=== PATIENT | female | born 1960 | race Caucasian/White ===

== ENCOUNTER 2018-03-18 12:39 | Inpatient (IN) | payer OTHER ==
[~2018-03-18] VITALS: Ht 162.6 cm; Wt 45.5 kg
--- NOTE | 2018-03-18 12:53 | NUR ---
PT TAKEN TO CT.
[2018-03-18] MEDS ORDERED: ONDANSETRON HCL/PF 4 MG/2 ML VIAL ONE (12:55)
[2018-03-18] MEDS ORDERED: HYDROMORPHONE INJ 2 MG/ML DISP.SYRIN ONE (12:55)
[2018-03-18] MEDS ORDERED: LORAZEPAM INJ 2 MG/ML VIAL ONE (12:55)
[2018-03-18 12:57] LABS: BASOPHILS # (AUTO) 0.4 /CMM (0.0-0.2); BASOPHILS % (AUTO) 2.5 % (0.0-2.0); EOSINOPHILS % (AUTO) 0.8 % (0.0-6.0); HEMATOCRIT 55 % (33-45); HEMOGLOBIN 17.9 g/dL (11.5-14.8); LYMPHOCYTES # (AUTO) 3.1 /CMM (0.8-4.8); LYMPHOCYTES % (AUTO) 21.5 % (20.0-44.0); MEAN CORPUSCULAR HEMOGLOBIN 30 PG (26.0-33.0); MEAN CORPUSCULAR HGB CONC 33 g/dl (31.0-36.0); MEAN CORPUSCULAR VOLUME 94 fL (82-100); MONOCYTES # (AUTO) 0.7 /CMM (0.1-1.30); MONOCYTES % (AUTO) 4.7 % (2.0-12.0); NEUTROPHILS # (AUTO) 10.2 /CMM (1.8-8.9); NEUTROPHILS % (AUTO) 70.5 % (43.0-81.0); PLATELET COUNT (AUTO) 388 /CMM (150-450); RDW COEFFICIENT OF VARIATION 12.5 (11.5-15.0); RED BLOOD CELL COUNT(AUTO) 5.89 MIL/uL (4.0-5.2); WHITE BLOOD COUNT (AUTO) 14.5 K/uL (4.3-11.0)
[2018-03-18] MEDS ORDERED: IV NS 0.9% 250 ML IV ONE (12:58)
[2018-03-18] MEDS ORDERED: CT SWABBABLE VALVE TRANS SET 1 EA INFUS.SET MC ONE (12:58)
[2018-03-18] MEDS ORDERED: IOHEXOL-300 100 ML VIAL IV ONE (12:58)
[2018-03-18] MEDS ORDERED: HYDROMORPHONE INJ 2 MG/ML DISP.SYRIN IV ONE (13:00)
[2018-03-18] MEDS ORDERED: IV NS 0.9% 1,000 ML BAG IV ONE ×2 (13:00→14:00)
[2018-03-18] MEDS ORDERED: LORAZEPAM INJ 2 MG/ML VIAL IV ONE (13:00)
[2018-03-18] MEDS ORDERED: ONDANSETRON HCL/PF 4 MG/2 ML VIAL IVP ONE (13:00)
[2018-03-18 13:08] LABS: CALCIUM, SERUM 10.2 mg/dL (8.5-10.1); CARBON DIOXIDE 27 mmol/L (21-32); CHLORIDE 103 mmol/L (98-107); CREATININE 1.2 mg/dL (0.6-1.3); GLUCOSE 118 mg/dL (74-106); POTASSIUM 4.2 mmol/L (3.5-5.1); SODIUM SERUM 139 mmol/L (136-145); UREA NITROGEN, BLOOD 16 mg/dL (7-18)
[2018-03-18 13:12] LABS: INR 0.95 (0.85-1.15)
[2018-03-18 13:14] LABS: ALANINE AMINOTRANSFERASE 24 U/L (12-78); ALBUMIN 3.9 g/dL (3.4-5.0); ALKALINE PHOSPHATASE 120 U/L (46-116); ASPARTATE AMINOTRANSFERASE 23 U/L (15-37); BILIRUBIN,DIRECT 0.1 mg/dL (0.0-0.2); BILIRUBIN,TOTAL 0.8 mg/dL (0.2-1.0); LIPASE 236 U/L (73-393); TOTAL PROTEIN, SERUM 7.7 g/dL (6.4-8.2)
[2018-03-18 13:16] LABS: TROPONIN I < 0.017 ng/mL (0.00-0.056)
--- NOTE | 2018-03-18 13:30 | NUR ---
NGT INSERTED WITH INTERMITENT LOW SUCTION
[2018-03-18] MEDS ORDERED: METO25TA6 PO (13:42)
[2018-03-18] MEDS ORDERED: ALBU18HF2 IH (13:42)
[2018-03-18] MEDS ORDERED: ASPI-992 PO (13:42)
--- NOTE | 2018-03-18 15:46 | NUR ---
REPORT GIVEN TO ESTELA ABOUT PATIENT. PATIENT REMIANS STABLE WITH NO DISTRESS NOTED. BREATHING EVEN AND UNLABORED WITH NO SOB NOTED. 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 PATIENT REMAINS CALM AND COLLECTIVE.
--- NOTE | 2018-03-18 16:00 | NUR ---
RECIEVED A CALL FROM RENEE FROM RADIOLOGIST. DK DURAN, UNABLE TO DO SMALL BOWEL FOLLOW THROUGH. WILL NOTIFY MEASUREMENT AND VERIFICATION ENGINEER,SHAWN TAPIA. Addendum: 03/18/18 at 1730 by ESTELA RAO CORRECTION: PER RENEE, UNABLE TO DO SMALL BOWEL FOLLOW THROUGH "TODAY".
[2018-03-18] MEDS ORDERED: IV NS 0.9% 1,000 ML IV PRN (16:19)
--- NOTE | 2018-03-18 16:25 | NUR ---
CANDELARIO JARRELL,CHIRAG ADMIT PATIENT TO TELEMETRY, LIQUIFIED NATURAL GAS TECHNICIAN NOTIFIED. TRANFERRED PATIENT TO 322-1, BEDSIDE REPORT GIVEN TO LISA.
[2018-03-18] MEDS ORDERED: ACETAMINOPHEN 325 MG TABLET PO PRN (16:30)
[2018-03-18] MEDS ORDERED: IV NS 0.9% 500 ML IV ONE (16:30)
[2018-03-18] MEDS ORDERED: MAGNESIUM HYDROXIDE 30 ML UDC PO PRN (16:30)
[2018-03-18] MEDS ORDERED: MAG HYDROX/AL HYDROX/SIMETH 30 ML UDC PO PRN (16:30)
[2018-03-18] MEDS ORDERED: ONDANSETRON HCL/PF 4 MG/2 ML VIAL IVP PRN (16:30)
[2018-03-18] MEDS ORDERED: Z GUARD REMEDY 2 OZ OINT TP PRN (16:30)
[2018-03-18] MEDS ORDERED: LEVOFLOXACIN 750 MG /D5W 150ML 750 MG in PREMIX 1 EA IV SCH (17:00)
--- NOTE | 2018-03-18 17:00 | NUR ---
MS RN NOTES RECEIVED PATIENT EYES CLOSE, EASILY AROUSABLE. RESPOND TO VERBAL AND TACTILE STIMULI.REPORT GIVEN BY ESTELA. NO ACUTE DISTRESS NOTED. BREATHING UNLABORED, NO SOB NOTED. IV ACCESS PATENT AND INTACT, NO REDNESS OR SWELLING NOTED. NGT IN PLACED WITH INTERMITTENT LOW SUCTION. ORIENTED TO THE ROOM. NEEDS ATTENDED. SAFETY MEASURES IN PLACE. CALL LIGHT WITHIN REACH. WILL CONTINUE TO MONITOR PATIENT.
[2018-03-18] MEDS ORDERED: METRONIDAZOLE 500MG/ NS 100ML 500 MG in PREMIX 1 EA IV SCH (18:00)
[2018-03-18] MEDS ORDERED: BARIUM SULFATE 98% 135 ML SUSP.RECON PO ONE (18:10)
[2018-03-18] MEDS ORDERED: DIATR MEGLU/DIATRIZOATE SODIUM 30 ML BOTTLE (GASTROGRAPHIN) ONE (18:10)
[2018-03-18] MEDS ORDERED: DIATR MEGLU/DIATRIZOATE SODIUM 120 ML BOTTLE (GASTROGRAPHIN) ONE (18:15)
--- NOTE | 2018-03-18 19:00 | NUR ---
MS RN NOTES PATIENT SITTING IN BED, ALERT ORIENTED X 4. NO ACUTE DISTRESS NOTED. BREATHING UNLABORED, NO SOB NOTED. IV ACCESS PATENT AND INTACT, NO REDNESS OR SWELLING NOTED. NGT IN PLACED WITH INTERMITTENT LOW SUCTION. DUE MEDICATIONS GIVEN, NO ASE NOTED. NEEDS ATTENDED AND ANTICIPATED. KEPT CLEAN, DRY AND COMFORTABLE. SAFETY MEASURES IN PLACE. CALL LIGHT WITHIN REACH. ENDORSED TO NIGHT NURSE FOR CONTINUITY OF CARE.
--- NOTE | 2018-03-18 19:21 | NUR ---
CAM MILLING MACHINE OPERATOR OPENING NOTE RECEIVE PATIENT AWAKE IN BED, A/O X3, NO SOB OR DISTRESS NOTED, CALL LIGHT WITHIN REACH. SAFETY MEASURES IMPLEMENTED. WILL CONTINUE TO MONITOR THROUGHOUT SHIFT
[2018-03-18 20:00] VITALS: BP 157/97
[2018-03-18] MEDS: METRONIDAZOLE 500MG/ NS 100ML 500 MG in PREMIX 1 EA IV SCH (20:07)
[2018-03-18] MEDS: MORPHINE SULFATE INJ 2 MG/ML DISP.SYRIN IV PRN (21:07)
[2018-03-19] VITALS: BP 153/80
[2018-03-19] MEDS: MORPHINE SULFATE INJ 2 MG/ML DISP.SYRIN IV PRN (02:05)
[2018-03-19] MEDS: METRONIDAZOLE 500MG/ NS 100ML 500 MG in PREMIX 1 EA IV SCH ×2 (02:06→08:05)
[2018-03-19] MEDS: LORAZEPAM INJ 2 MG/ML VIAL IV PRN ×2 (02:34→23:12)
--- NOTE | 2018-03-19 02:45 | NUR ---
HIGH VALUE ASSOCIATE NOTES PAGED HOSPITALIST SPOKE TO DR. GILLIAM RELAYED PT UNCOOPERATIVE TO HER CARE SCREAMING AT NURSES AND REMOVED HER NGT TUBE PT VERBALIZED SHE DOESN'T NEED IT DESPITE EXPLAINING RISKS AND BENEFITS OFFERED 3 TIMES STILL REFUSING, PT A/O X4,DR. BHASKAR WIN. AWARE REMOVED NGT TUBE Addendum: 03/19/18 at 0609 by GLENN JULIAN RN PT REMOVED NGT 0200
[2018-03-19 04:00] VITALS: BP_SYST 149; BP_SYST 166; BP_DIAS 77; BP_DIAS 92
--- NOTE | 2018-03-19 06:09 | NUR ---
DIGITAL MARKETING APPRENTICE CLOSING NOTES ASLEEP AND EASILY AWAKEN. STABLE, TOLERATING ROOM AIR 99%. RESPIRATION EVEN AND UNLABORED. SR 90 KEPT CLEAN AND DRY AND COMFORTABLE, NURSING CARE RENDERED. NEEDS ATTENDED AND ANTICIPATED, NO COMPLAIN OF PAIN. PT REFUSED STILL TO INSERT NGT TUBE DESPITE EXPLAINING RISKS AND BENEFITS HOSPITALIST MADE AWARE. ON LOW BED AT ALL TIMES TO ENSURE SAFETY. SAFE HAZARD FREE ENVIRONMENT PROVIDED. CALL LIGHT WITHIN EASY TO REACH. WILL ENDORSE NEXT SHIFT CONTINUITY OF CARE.
[2018-03-19 06:53] LABS: APPEARANCE,URINE CLEAR (CLEAR); BILIRUBIN,URINE NEGATIVE (NEGATIVE); BLOOD, URINE TRACE Ery/uL (NEGATIVE); COLOR,URINE YELLOW (YELLOW); KETONES,URINE TRACE (NEGATIVE); LEUKOCYTE ESTERASE ,URINE TRACE (NEGATIVE); NITRITE, URINE NEGATIVE (NEGATIVE); PROTEIN,URINE NEGATIVE (NEGATIVE); UGLUCOSE NEGATIVE (NEGATIVE); UROBILINOGEN,URINE 0.2 EU/dL (0.2)
--- NOTE | 2018-03-19 07:05 | NUR ---
BOX BLANK MACHINE FEEDER NOTES PATIENT EYES CLOSE, EASILY AROUSABLE. RESPOND TO VERBAL AND TACTILE STIMULI.VERBALLY RESPONSIVE. NO ACUTE DISTRESS NOTED. BREATHING UNLABORED, NO SOB NOTED. DENIED AND PAIN. IV ACCESS PATENT AND INTACT, NO REDNESS OR SWELLING NOTED. PATIENT REFUSED NGT REINSERTED FOR LOW INTERMITTENT SUCTION. SAFETY MEASURES IN PLACE. CALL LIGHT WITHIN REACH. WILL CONTINUE TO MONITOR PATIENT. Addendum: 03/19/18 at 0958 by SANJUANA PERALTA RN ADDENDUM EXPLAINED TO THE PATIENT RISK AND BENEFITS OF NGT FOR LOW INTERMITTENT SUCTION, PATIENT STRONGLY REFUSED.
[2018-03-19 07:10] LABS: BACTERIA,URINE Rare /HPF (None Seen); SQUAMOUS EPITHELIAL CELL,UR Rare /HPF (None Seen)
[2018-03-19 07:24] LABS: HEMATOCRIT 45 % (33-45); LYMPHOCYTES # (AUTO) 1.5 /CMM (0.8-4.8); LYMPHOCYTES % (AUTO) 6.6 % (20.0-44.0); MEAN CORPUSCULAR HEMOGLOBIN 32 PG (26.0-33.0); MEAN CORPUSCULAR HGB CONC 33 g/dl (31.0-36.0); MEAN CORPUSCULAR VOLUME 96 fL (82-100); MONOCYTES # (AUTO) 0.8 /CMM (0.1-1.30); MONOCYTES % (AUTO) 3.7 % (2.0-12.0); NEUTROPHILS # (AUTO) 20.2 /CMM (1.8-8.9); NEUTROPHILS % (AUTO) 89.7 % (43.0-81.0); PLATELET COUNT (AUTO) 278 /CMM (150-450); RDW COEFFICIENT OF VARIATION 13.2 (11.5-15.0); RED BLOOD CELL COUNT(AUTO) 4.69 MIL/uL (4.0-5.2); WHITE BLOOD COUNT (AUTO) 22.5 K/uL (4.3-11.0)
[2018-03-19 07:36] LABS: CALCIUM, SERUM 8.5 mg/dL (8.5-10.1); MAGNESIUM 1.8 mg/dL (1.8-2.4); PHOSPHORUS 4.4 mg/dL (2.5-4.9); POTASSIUM 3.6 mmol/L (3.5-5.1)
[2018-03-19 08:00] VITALS: BP 149/91
[2018-03-19] MEDS: PANTOPRAZOLE 40 MG VIAL IV SCH (08:05)
--- NOTE | 2018-03-19 09:00 | NUR ---
PLAYBACK OPERATOR NOTES SEEN AND EVALUATED BY CHIRAG JARRELL Addendum: 03/19/18 at 0932 by SANJUANA PERALTA RN PLAYBACK OPERATOR NOTES SEEN AND EVALUATED BY CHIRAG JARRELL ,AWARE OF PATIENT REFUSAL OF NGT REINSERTION FOR LOW INTERMITTENT SUCTION.
[2018-03-19 09:56] LABS: BAND % (MANUAL) 2 % (0.0-5.0); LYMPHOCYTES % (MANUAL) 7 % (16-48); MONOCYTES % (MANUAL) 9 % (0-11.0); NEUTROPHILS % (MANUAL) 82 (42-76)
[2018-03-19] MEDS ORDERED: PIPERACILLIN /TAZOBACTAM 3.375 G in IV D5W 50 ML IV SCH (10:00)
[2018-03-19 10:29] LABS: THYROID STIMULATING HORMONE 0.898 uIU/mL (0.358-3.74)
[2018-03-19] MEDS ORDERED: BUPIVACAINE MPF 0.75% 30 ML VIAL ONE (11:25)
[2018-03-19] MEDS ORDERED: LIDOCAINE HCL/PF 1% 30 ML SDV ONE (11:26)
[2018-03-19] MEDS ORDERED: SUCCINYLCHOLINE CHLORIDE 20 MG/ML VIAL ONE (12:21)
[2018-03-19] MEDS ORDERED: FENTANYL PF 100MCG/2ML AMPUL ONE (12:22)
[2018-03-19] MEDS ORDERED: METOCLOPRAMIDE HCL 10 MG/2 ML VIAL ONE (12:36)
[2018-03-19 12:50] LABS: INR 1.09 (0.87-1.13)
[2018-03-19] MEDS ORDERED: ESMOLOL INJ 100 MG/10 ML VIAL IV ONE (13:16)
[2018-03-19] MEDS ORDERED: PROPOFOL 100 ML ONE (14:34)
--- NOTE | 2018-03-19 14:50 | NUR ---
MS RN NOTES RECEIVED CALL FROM ICU, PATIENT TRANSFER FROM OPERATING ROOM TO ICU 258 FOR RECOVERY.
--- NOTE | 2018-03-19 15:12 | NUR ---
RT PATIENT BROUGHT TO ICU POST OPERATION INTUBATED WAKING UP FROM SEDATION. ANESTHESIOLOGIST AT BEDSIDE GAVE ORDER TO EXTUBATE PATIENT. PATIENT EXTUBATED AN PLACED ON 5L NASAL CANNULA TOLERATED WELL AT THIS TIME. BREATH SOUNDS CLEAR, STRONG DRY COUGH, NO SIGNS OF SOB AT THIS TIME. RECOVERY NURSE PAT AT BEDSIDE. AMBU BAG AT [facility] BED
--- NOTE | 2018-03-19 15:30 | NUR ---
MS RN NOTES PATIENT CAME BACK FROM ICU IN STABLE CONDITION, EYES CLOSED, AROUSABLE , NO ACUTE DISTRESS NOTED, BREATHING UNLABORED. NO SOB NOTED. ON O2 VIA NC .WITH NGT INTACT, PLACED IN LOW INTERMITTENT SUCTION. REPORT GIVEN BY LOLA AT BEDSIDE. IV ACCESS PATENT AND INTACT. SAFETY MEASURES IN PLACED. WILL CONTINUE TO MONITOR PATIENT.
--- NOTE | 2018-03-19 15:55 | NUR ---
MS RN NOTES RECEIVED NEW ORDERS FROM MARC BAKER WITH NEW ORDERS MADE. NOTED AND CARRIED OUT.
[2018-03-19 16:00] VITALS: BP 149/82
--- NOTE | 2018-03-19 16:05 | NUR ---
MS RN NOTES DUE TO PATIENT PULLING OUT NGT TUBE CALLED MANAGER MARKET DEVELOPMENT CANDELARIO JARRELL NOTIFIED WITH NEW ORDERS FOR BILATERAL SOFT WRIST RESTRAINT. NOTED AND CARRIED OUT.
[2018-03-19] MEDS: Potassium Chloride 20 MEQ in IV D5/0.45 NACL 1,000 ML IV PRN (16:24)
[2018-03-19] MEDS: METOCLOPRAMIDE HCL 10 MG/2 ML VIAL IV SCH ×2 (17:43→23:57)
--- NOTE | 2018-03-19 18:49 | NUR ---
MS RN NOTES PATIENT IN EYES CLOSED , EASILY AROUSABLE, RESPOND TO VERBAL AND TACTILE STIMULI. VERBALLY RESPONSIVE. WITH STABLE VITAL SIGNS. NO ACUTE DISTRESS NOTED. BREATHING UNLABORED, NO SOB NOTED. IV ACCESS PATENT AND INTACT, NO REDNESS OR SWELLING NOTED. ABDOMINAL DRESSING DRESSING INTACT, CLEAN AND DRY. DUE MEDICATIONS GIVEN , NO ASE NOTED. NEEDS ATTENDED AND ANTICIPATED. KEPT CLEAN, DRY AND COMFORTABLE. SAFETY MEASURES IN PLACE.BILATERAL SOFT RESTRAINT IN PLACE, WITH GOOD CIRCULATION. CALL LIGHT WITHIN REACH. WILL CONTINUE TO MONITOR PATIENT. WILL ENDORSE TO NIGHT NURSE FOR CONTINUITY OF CARE.
--- NOTE | 2018-03-19 19:00 | NUR ---
MS RN OPENING NOTE RECEIVE PATIENT SLEEPING IN BED EASILY AWAKEN, NO SOB OR DISTRESS NOTED, CALL LIGHT WITHIN REACH. SAFETY MEASURES IMPLEMENTED. WILL CONTINUE TO MONITOR THROUGHOUT SHIFT
[2018-03-19 20:00] VITALS: BP 144/87
[2018-03-19] MEDS: ANCEF 1 GM/50 ML D5W IV SCH ×2 (20:55)
--- NOTE | 2018-03-19 23:00 | NUR ---
PAGED AND SPOKE TO HOSPITALIST RELAYED RESULT OF ABDOMEN XRAY INSTRUCTED US TO ADVANCE NGT TUBE AT 6CM AND OBTAIN ABDOMEN XRAY NOTED AND CARRIED OUT READ BACK AND VERIFIED ORDERS
--- NOTE | 2018-03-19 23:05 | NUR ---
ADVANCED NGT INSTRUCTED BY HOSPITALIST TOLERATED PROCEDURE
[2018-03-20] MEDS: Potassium Chloride 20 MEQ in IV D5/0.45 NACL 1,000 ML IV PRN ×2 (01:41→14:56)
[2018-03-20] MEDS: METOCLOPRAMIDE HCL 10 MG/2 ML VIAL IV SCH ×3 (05:24→17:19)
[2018-03-20] MEDS: ANCEF 1 GM/50 ML D5W IV SCH ×6 (05:24→20:42)
[2018-03-20] MEDS: MORPHINE SULFATE INJ 2 MG/ML DISP.SYRIN IV PRN ×2 (05:24→19:22)
--- NOTE | 2018-03-20 06:14 | NUR ---
MS RN CLOSING NOTES ASLEEP AND EASILY AWAKEN STABLE, NOT IN DISTRESS. ON 2LPM VIA NC O2 SAT AT 98% RESPIRATION EVEN AND UNLABORED. KEPT CLEAN AND DRY AND COMFORTABLE, ALL NURSING CARE RENDERED. NEEDS ATTENDED AND ANTICIPATED, NGT CONNECTED TO LOW INTERMITTENT SUCTION. SOFT WRIST BILATERAL RESTRAIN ON FOR SAFETY CHECKED GOOD SKIN CARE PROVIDED. NO COMPLAIN OF PAIN. ON LOW BED AT ALL TIMES TO ENSURE SAFETY. SAFE HAZARD FREE ENVIRONMENT PROVIDED. CALL LIGHT WITHIN EASY TO REACH. WILL ENDORSE NEXT SHIFT CONTINUITY OF CARE.
[2018-03-20 07:08] LABS: BASOPHILS % (AUTO) 0.3 % (0.0-2.0); EOSINOPHILS % (AUTO) 0.2 % (0.0-6.0); HEMATOCRIT 41 % (33-45); HEMOGLOBIN 13.4 g/dL (11.5-14.8); LYMPHOCYTES # (AUTO) 1.8 /CMM (0.8-4.8); LYMPHOCYTES % (AUTO) 12.9 % (20.0-44.0); MEAN CORPUSCULAR HEMOGLOBIN 32 PG (26.0-33.0); MEAN CORPUSCULAR HGB CONC 33 g/dl (31.0-36.0); MEAN CORPUSCULAR VOLUME 98 fL (82-100); MONOCYTES # (AUTO) 1.5 /CMM (0.1-1.30); MONOCYTES % (AUTO) 10.4 % (2.0-12.0); NEUTROPHILS # (AUTO) 10.7 /CMM (1.8-8.9); NEUTROPHILS % (AUTO) 76.2 % (43.0-81.0); PLATELET COUNT (AUTO) 239 /CMM (150-450); RDW COEFFICIENT OF VARIATION 13.9 (11.5-15.0); RED BLOOD CELL COUNT(AUTO) 4.22 MIL/uL (4.0-5.2); WHITE BLOOD COUNT (AUTO) 14.1 K/uL (4.3-11.0)
[2018-03-20 07:41] LABS: CALCIUM, SERUM 8.4 mg/dL (8.5-10.1); CREATININE 0.9 mg/dL (0.6-1.3); POTASSIUM 4.5 mmol/L (3.5-5.1)
[2018-03-20 08:00] VITALS: BP 147/93
--- NOTE | 2018-03-20 08:00 | NUR ---
rn notes received patient in the bed resting. patient has no acute respiratory distress on o2-2l NC. Patient also has NG tube with low intermittent suctioning. iv access on right ac area intact, needs attended and anticipated, HOB keep elevated. patient refused pain at this time. patient has soft restrain for not removing NG tubing. call light within to reach, safety precaution maintained all the time.
[2018-03-20] MEDS: PANTOPRAZOLE 40 MG VIAL IV SCH (08:59)
--- NOTE | 2018-03-20 09:00 | NUR ---
rn notes removed NG tube as prescribed by dr Diallo, patient clear liquid advance diet as tolerated, continued monitoring.
--- NOTE | 2018-03-20 13:00 | NUR ---
RN NOTES PATIENT REFUSED TO EAT, REFUSED ECHO, AND PT EVALUATION, SLEEPING AT THIS TIME. INFUSING POTASSIUM 20 MEQ D51/2 AT 125 MG/ML LEFT AC AREA INTACT, PATIENT REFUSED PAIN, N/V AT THIS TIME. CALL LIGHT WITHIN TO REACH, SCHEDULED MEDICATION ADMINISTERED. CONTINUED MONITORING.
[2018-03-20] MEDS: HYDROCODONE/APAP 5/325MG 1 EACH TABLET PO PRN (14:50)
--- NOTE | 2018-03-20 14:50 | NUR ---
RN NOTES ADMINISTERED NARCO 5/325 MG PO PRN FOR AND PAIN 6/10 PER PATIENT REQUEST, V/S TAKEN BP 147/90, P-95, CONTINUED MONITORING. ENCOURAGED TO INCREASE FLUID INTAKE.
--- NOTE | 2018-03-20 15:46 | NUR ---
TRIED TO DO ECHO STUDY @ 10:45AM BUT PATIENT REFUSED. ADVISED JUSTINE AMIN AND CHARGE NURSE ERIKA. CAME BACK @3:45PM AND STILL PATIENT REFUSED. INFORMED BRENNAN.
[2018-03-20 16:00] VITALS: BP 175/89
--- NOTE | 2018-03-20 18:23 | NUR ---
RN NOTES PATIENT SLEEPING AT THIS TIME, NO ACUTE RESPIRATORY DISTRESS, USING BED SIDE COMMODE. ENDORSED ONCOMING NURSE FOR PLAN OF CARE.
--- NOTE | 2018-03-20 19:15 | NUR ---
MS RN INITIAL NOTES Report received. Patient received in bed, resting comfortably, easily aroused. Alert and oriented x3. No SOB/labored breathing noted. Not in any type of distress. Safety measures in place. Bed in lowest position with bed alarm and call light within reach. Will continue to monitor and assess patient.
--- NOTE | 2018-03-20 19:22 | NUR ---
RN NOTES ADMINISTERED MORPHINE SULFATE 2ML/1MG IV PUSH PER PATIENT REQUEST FOR ABDOMINAL PAIN 03/11, BP-179/ 76, P-78. CONTINUED MONITORING.
[2018-03-20 20:00] VITALS: BP 147/85
[2018-03-21] MEDS: METOCLOPRAMIDE HCL 10 MG/2 ML VIAL IV SCH ×5 (01:39→23:51)
--- NOTE | 2018-03-21 01:48 | NUR ---
MS RN NOTES Patient in bed, sleeping comfortably, easily aroused. Not in any type of distress. Will continue to monitor
[2018-03-21] MEDS: Potassium Chloride 20 MEQ in IV D5/0.45 NACL 1,000 ML IV PRN ×2 (02:17→15:28)
[2018-03-21] MEDS: ANCEF 1 GM/50 ML D5W IV SCH ×6 (04:49→20:28)
--- NOTE | 2018-03-21 07:07 | NUR ---
MS RN CLOSING NOTES Patient in bed, sleeping comfortably, easily aroused. Alert and oriented x3, verbally responsive. Patient continues to remove oxygen (nasal cannula). No SOB/labored breathing noted. Not in any type of distress. All needs anticipated and met. Safety measures in place. Continue on IV fluids as planned. Bed in lowest position with bed alarm on and call light within reach. Endorsed to oncoming shift nurse
[2018-03-21 07:14] LABS: BASOPHILS % (AUTO) 0.2 % (0.0-2.0); EOSINOPHILS % (AUTO) 1.1 % (0.0-6.0); HEMATOCRIT 40 % (33-45); HEMOGLOBIN 13.1 g/dL (11.5-14.8); LYMPHOCYTES # (AUTO) 1.5 /CMM (0.8-4.8); LYMPHOCYTES % (AUTO) 14.3 % (20.0-44.0); MEAN CORPUSCULAR HEMOGLOBIN 32 PG (26.0-33.0); MEAN CORPUSCULAR HGB CONC 33 g/dl (31.0-36.0); MEAN CORPUSCULAR VOLUME 97 fL (82-100); MONOCYTES # (AUTO) 0.6 /CMM (0.1-1.30); MONOCYTES % (AUTO) 6.1 % (2.0-12.0); NEUTROPHILS # (AUTO) 8.2 /CMM (1.8-8.9); NEUTROPHILS % (AUTO) 78.3 % (43.0-81.0); PLATELET COUNT (AUTO) 252 /CMM (150-450); RDW COEFFICIENT OF VARIATION 13.4 (11.5-15.0); RED BLOOD CELL COUNT(AUTO) 4.11 MIL/uL (4.0-5.2); WHITE BLOOD COUNT (AUTO) 10.5 K/uL (4.3-11.0)
[2018-03-21 07:25] LABS: CALCIUM, SERUM 8.6 mg/dL (8.5-10.1); CREATININE 0.8 mg/dL (0.6-1.3); POTASSIUM 3.3 mmol/L (3.5-5.1)
[2018-03-21 08:00] VITALS: BP 161/73
--- NOTE | 2018-03-21 08:00 | NUR ---
RN NOTES RECEIVED PATIENT IN THE BED, RESTING , NO ACUTE RESPIRATORY DISTRESS, V/S STABLE, CALL LIGHT WITHIN TO REACH, SAFETY PRECAUTION MAINTAINED ALL THE TIME.
[2018-03-21] MEDS ORDERED: ALBUTEROL FS 2.5 MG/0.5 ML VIAL.NEB NEB PRN (09:00)
[2018-03-21] MEDS: PANTOPRAZOLE 40 MG VIAL IV SCH (09:17)
--- NOTE | 2018-03-21 09:23 | NUR ---
RT PATIENT APPEARED AGITATED, WOULD NOT ALLOW US TO DRAW ABG. SAT 98%, NO SIGNS OF RESPIRATORY DISTRESS @ THIS TIME. RN NOTIFIED. WILL MONITOR CLOSELY.
[2018-03-21] MEDS: HYDROCODONE/APAP 5/325MG 1 EACH TABLET PO PRN (09:46)
--- NOTE | 2018-03-21 09:46 | NUR ---
RN NOTES ADMINISTERED NARCO 5/325 MG PO PRN FOR ABDOMINAL PAIN 5/10 PER PATIENT REQUEST, V/S TAKN BP 161/73, P-107, ENCOURAGED TO INCREASE FLUID INTAKE.
--- NOTE | 2018-03-21 13:24 | NUR ---
Social service consult requested by CHIRAG Foy for homelessness. Pt. is a 57 year old female who was admitted to [facility] for bowel obstruction. SW met with pt. bedside. Pt. is alert and oriented x 3. Pt. appears disheveled and not very cooperative with SW during the assessment. Pt. states she lives in a tent on [facility] [address] in [place]. Pt. receives GR and Food stamps monthly. SW offered pt. homeless halfway placement and resources. Pt. declined stating, " they are all full." SW attempted again to offer halfway referrals. Pt. declined again and asked SW to leave stating, " I want to sleep right now." SW to follow up again tomorrow with the pt. prior to discharge halfway placement and referrals.
[2018-03-21 15:37] VITALS: BP 138/69
[2018-03-21] MEDS: MORPHINE SULFATE INJ 2 MG/ML DISP.SYRIN IV PRN (16:09)
--- NOTE | 2018-03-21 16:09 | NUR ---
RN NOTES ADMINISTERED MORPHINE 2 MG /1ML IV PUSH PER PATIENT REQUEST FOR ABDOMEN 6/10 PAIN LEVEL PER PATIENT REQUEST, V/S TAKEN BP 134/67, P-78, CONTINUED MONITORING.
--- NOTE | 2018-03-21 18:30 | NUR ---
RN NOTES PATIENT STABLE MEDICATION WERE ADMINISTERED FOR PAIN EFFECTIVE, PATIENT EAT, NO COMPLAINING OF NAUSEA AND VOMITING. CALL LIGHT WITHIN TO REACH. ENDORSED ONCOMING NURSE FOR PLAN OF CARE.
--- NOTE | 2018-03-21 19:10 | NUR ---
MS RN INITIAL NOTES Report received. Patient received in bed, sleeping comfortably, easily aroused. IV on left forearm with D5 0.5NS + K20mEq @125ml/hr. Denies any pain. No face grimacing or moaning noted. Not in any type of distress. No SOB/labored breathing noted. Bedside commode at bedside. Safety measures in place. Will continue to monitor and assess patient.
[2018-03-21 20:00] VITALS: BP 153/91
[2018-03-22] MEDS: Potassium Chloride 20 MEQ in IV D5/0.45 NACL 1,000 ML IV PRN ×2 (00:03→09:33)
--- NOTE | 2018-03-22 02:00 | NUR ---
MS/RN NOTES RECEIVED PT. AND REPORT FROM JUSTINE STYLES. PT. IS LYING IN BED RESTING. BREATHING EVEN AND UNLABORED ON ROOM AIR. NO SOB, RESPIRATORY DISTRESS OR COMPLAINTS OF PAIN NOTED AT THIS TIME. PT. WITH LEFT FOREARM 22 GAUGE PERIPHERAL IV PRESENT, PATENT AND INTACT ADMINISTERING TO PT. D51/2 NS WITH 20MEQ KCL @ 125 ML/HR. BED LOCKED AND IN LOWEST POSITION, SIDE RAILS UP X2, CALL LIGHT WITHIN REACH, WILL CONTINUE TO MONITOR.
[2018-03-22] MEDS: ANCEF 1 GM/50 ML D5W IV SCH ×4 (04:53→12:53)
[2018-03-22] MEDS: METOCLOPRAMIDE HCL 10 MG/2 ML VIAL IV SCH ×2 (06:28→12:32)
--- NOTE | 2018-03-22 06:55 | NUR ---
MS/RN NOTES PT. IS LYING IN BED RESTING. BREATHING EVEN AND UNLABORED ON ROOM AIR. NO SOB, RESPIRATORY DISTRESS OR COMPLAINTS OF PAIN NOTED AT THIS TIME. PT. WITH LEFT FOREARM 22 GAUGE PERIPHERAL IV PRESENT, PATENT AND INTACT ADMINISTERING TO PT. D51/2 NS WITH 20MEQ KCL @ 125 ML/HR. ALL PT. NEEDS MET. BED LOCKED AND IN LOWEST POSITION, SIDE RAILS UP X2, CALL LIGHT WITHIN REACH, WILL ENDORSE TO DAYSHIFT NURSE FOR CONTINUITY OF CARE.
[2018-03-22 07:04] LABS: CALCIUM, SERUM 8.7 mg/dL (8.5-10.1); CREATININE 0.7 mg/dL (0.6-1.3); POTASSIUM 3.6 mmol/L (3.5-5.1)
[2018-03-22 07:16] LABS: BASOPHILS % (AUTO) 0.2 % (0.0-2.0); EOSINOPHILS % (AUTO) 0.9 % (0.0-6.0); HEMATOCRIT 41 % (33-45); HEMOGLOBIN 13.8 g/dL (11.5-14.8); LYMPHOCYTES % (AUTO) 14.7 % (20.0-44.0); MEAN CORPUSCULAR HEMOGLOBIN 32 PG (26.0-33.0); MEAN CORPUSCULAR HGB CONC 34 g/dl (31.0-36.0); MEAN CORPUSCULAR VOLUME 96 fL (82-100); MONOCYTES # (AUTO) 0.4 /CMM (0.1-1.30); MONOCYTES % (AUTO) 5.1 % (2.0-12.0); NEUTROPHILS # (AUTO) 5.6 /CMM (1.8-8.9); NEUTROPHILS % (AUTO) 79.1 % (43.0-81.0); PLATELET COUNT (AUTO) 239 /CMM (150-450); RDW COEFFICIENT OF VARIATION 13.4 (11.5-15.0); RED BLOOD CELL COUNT(AUTO) 4.29 MIL/uL (4.0-5.2); WHITE BLOOD COUNT (AUTO) 7.1 K/uL (4.3-11.0)
--- NOTE | 2018-03-22 07:20 | NUR ---
RN OPENING NOTES RECEIVED PT. IN BED AWAKE, A&OX4. BREATHING UNLABORED, AND EVENLY ON ROOM AIR. PT. DENIES PAIN, NO S/S OF ACUTE DISTRESS. IV FLUIDS RUNNING AT 125 ML/HR. BEDSIDE COMMODE IS NEAR BEDSIDE. BED IS IN LOWEST, AND LOCKED POSITION. 2 SIDE RAILS UP, AND INSTRUCTED PT. TO USE CALL LIGHT FOR ASSISTANCE. ALL NEEDS MET. WILL CONTINUE TO ASSESS AND MONITOR.
[2018-03-22 08:00] VITALS: BP 157/92
[2018-03-22] MEDS: PANTOPRAZOLE 40 MG VIAL IV SCH ×2 (09:34→09:44)
[2018-03-22] MEDS ORDERED: AZIT250T13 PO (10:20)
[2018-03-22] MEDS ORDERED: DOCU250C14 PO (10:20)
--- NOTE | 2018-03-22 14:34 | NUR ---
Social service consult requested by CHIRAG Foy for homelessness. SW followed up with patient at bedside. Pt was awake and oriented x3 with an organized thought process. Pt presented with a labile mood. She is very thin and disheveled. She initially refused a long term and reported that she would return to her tent at [facility]/ [place], [place]. Patient went back and forth between her tent and shelters. She refused to go to [facility] in [place]. When she was advised that all available shelters are downtown, she agreed to return to her tent. Pt will be transported via taxi to her tent at [facility]. gonzalo Keen RN was notified and agreed to order a taxi for the patient. Patient was also given homeless resources including [facility] at [address] [place] [phone]. Please see copies of material in patients chart.
--- NOTE | 2018-03-22 15:57 | NUR ---
COMMODITIES BROKER NOTES PT. WAS DISCHARGED IN STABLE CONDITION. DISCHARGE INSTRUCTIONS WERE PROVIDED WITH EDUCATION AND PT. VERBALIZED UNDERSTANDING. BELONGINGS LIST WAS CHECKED, AND SIGNED. PT. RECEIVED BACK MEDICATIONS FROM PHARMACY, 1 BOTTLE OF METOPROLOL, AND ASPIRIN. PRESCRIPTION WAS GIVEN WITH EDUCATION. PT. VERBALIZED UNDERSTANDING, AND DISCHARGE PAPERS WERE SIGNED. PT. RECEIVED CLOTHES BEFORE DISCHARGE, AND LEFT IN A TAXI WITH A TAXI VOUCHER. PT. WAS GIVEN JUICE, A SANDWICH, AND WATER BEFORE DISCHARGE. ALL QUESTIONS ANSWERED. PT.'S LAST NAME WAS CORRECTED IN ADMITTING FROM [facility] TO [facility].
== END 2018-03-22 15:20 | disposition home or self-care (01) | DRG 224 ==
LOC: ER 12:41 → MEDSG2 16:15 → TELE 16:57 → MED 03-19 08:22 → ICU 03-19 14:52 → MED 03-19 15:19
PROVIDERS: ADMIT Nurse Practitioner Acute Care; ATTEND Nurse Practitioner Acute Care
PROC: 0DN84ZZ Release Small Intestine, Percutaneous Endoscopic Approach (ICD-10-PCS; principal; 2018-03-19 12:00)
DX: K56.50 Intestinal adhesions [bands], unspecified as to partial versus complete obstruction (principal); J18.9 Pneumonia, unspecified organism; E87.2 Acidosis; E44.0 Moderate protein-calorie malnutrition; D75.1 Secondary polycythemia; E86.0 Dehydration; J44.9 Chronic obstructive pulmonary disease, unspecified; Z79.82 Long term (current) use of aspirin; Z79.899 Other long term (current) drug therapy; Z59.0 Homelessness; N39.0 Urinary tract infection, site not specified; Z72.0 Tobacco use; F41.9 Anxiety disorder, unspecified; Z68.1 Body mass index [BMI] 19.9 or less, adult
CPT/HCPCS: 36415; 71045-TC; 71046; 74018; 74250-TC; 80048-TC; 80061-TC; 80076-TC; 81000-TC; 83605-TC; 83690-TC; 83735-TC; 84100-TC; 84443-TC; 84484-TC; 85025-TC; 85610-TC; 85730-TC; 86850-TC; 87040-TC; 87070-TC; 87081-TC; 87086-TC; A4216; A4606; C9113; J0330; J0690; J1170; J1956; J2060; J2270; J2405; J2543; J2765; J3010; J3480; J3490; J7030; J7050; J7060; Q9963; Q9967; Z7610

== ENCOUNTER 2018-04-28 10:37 | Emergency (ER) | payer OTHER ==
[~2018-04-28] VITALS: Ht 152.4 cm; Wt 43.1 kg
[2018-04-28 10:37] VITALS: BP 159/96
[~2018-04-28 10:37] MED LIST: ALBU18HF2 IH; ASPI-992 PO; AZIT250T13 PO; DOCU250C14 PO; METO25TA6 PO
== END 2018-04-28 11:32 | disposition home or self-care (01) ==
LOC: ER 10:41
DX: A49.9 Bacterial infection, unspecified (principal); I10 Essential (primary) hypertension; J44.9 Chronic obstructive pulmonary disease, unspecified; Z79.899 Other long term (current) drug therapy; Z79.82 Long term (current) use of aspirin
CPT/HCPCS: 99283; A4606; Z7610

== ENCOUNTER 2018-05-20 15:29 | Emergency (ER) ==
[~2018-05-20] VITALS: Ht 152.4 cm; Wt 65.8 kg
[2018-05-20 15:58] VITALS: BP 152/74
== END 2018-05-20 16:46 | disposition home or self-care (01) ==
LOC: ER 15:36
DX: R21 Rash and other nonspecific skin eruption (principal); I10 Essential (primary) hypertension; J44.9 Chronic obstructive pulmonary disease, unspecified; Z98.890 Other specified postprocedural states; Z60.2 Problems related to living alone; Z79.899 Other long term (current) drug therapy
CPT/HCPCS: A4606; Z7502; Z7610

== ENCOUNTER 2025-07-13 12:35 | Inpatient (IN) | payer OTHER ==
[~2025-07-13] VITALS: Ht 157.5 cm; Wt 54.9 kg
[2025-07-13] MEDS ORDERED: Magnesium 1GM/D5W 100ML PREMIX 200 ML IV ONE (13:33)
[2025-07-13] MEDS ORDERED: IPRATROPIUM NEB FS 0.5 MG/2.5 ML AMPUL.NEB ONE (13:34)
[2025-07-13] MEDS ORDERED: ALBUTEROL FS 2.5 MG/3 ML VIAL.NEB ONE (13:34)
[2025-07-13] MEDS: Magnesium 1GM/D5W 100ML PREMIX 200 ML IV ONE (13:35)
[2025-07-13 13:38] VITALS: O2SAT 98
[2025-07-13] MEDS: IPRATROPIUM NEB FS 0.5 MG/2.5 ML AMPUL.NEB NEB ONE (13:38)
[2025-07-13] MEDS: ALBUTEROL FS 2.5 MG/3 ML VIAL.NEB CONTNEB ONE (13:38)
[2025-07-13 13:45] LABS: PLATELET COUNT (AUTO) 230 K/uL (150-450); RED BLOOD CELL COUNT(AUTO) 4.55 MIL/uL (4.0-5.2); RED CELL DISTRIBUTION WIDTH 14.4 % (11.5-15.0); WHITE BLOOD COUNT (AUTO) 7.7 K/uL (4.3-11.0)
[2025-07-13 13:53] LABS: CALCIUM, SERUM 9.1 mg/dL (8.5-10.1); CREATININE 1.0 mg/dL (0.6-1.3); SODIUM SERUM 136 mmol/L (136-145); UREA NITROGEN, BLOOD 14 mg/dL (7-18)
[2025-07-13 14:05] LABS: ASPARTATE AMINOTRANSFERASE 22 U/L (15-37); NT-PRO BNP 419 pg/mL (0-125); TOTAL PROTEIN, SERUM 7.2 g/dL (6.4-8.2)
[2025-07-13 14:38] VITALS: O2SAT 100
[2025-07-13] MEDS ORDERED: LOSA25TA27 PO (15:20)
[2025-07-13] MEDS ORDERED: MAGNESIUM HYDROXIDE 30 ML UDC PO PRN (17:00)
[2025-07-13] MEDS ORDERED: Z GUARD REMEDY 4 OZ OINT TP PRN (17:00)
[2025-07-13] MEDS ORDERED: ACETAMINOPHEN 325 MG TABLET PO PRN (17:00)
[2025-07-13] MEDS ORDERED: ALBUTEROL SULFATE 8 GM HFA.AER.AD IH PRN (17:00)
[2025-07-13] MEDS ORDERED: MAG HYDROX/AL HYDROX/SIMETH 30 ML UDC PO PRN (17:00)
[2025-07-13] MEDS ORDERED: ALBUTEROL FS 2.5 MG/0.5 ML VIAL.NEB NEB PRN (19:30)
[2025-07-13 20:00] VITALS: BP 129/100; TEMP 97.8; O2SAT 97
[2025-07-13] MEDS: TEMAZEPAM 7.5 MG CAPSULE PO PRN (21:22)
[2025-07-14] VITALS (7 sets, daily range): BP systolic 109–125; BP diastolic 60–94; TEMP 97.5–99.3; O2SAT 90–98
[2025-07-14 07:53] LABS: PLATELET COUNT (AUTO) 252 K/uL (150-450); RED BLOOD CELL COUNT(AUTO) 4.76 MIL/uL (4.0-5.2); RED CELL DISTRIBUTION WIDTH 14.4 % (11.5-15.0); WHITE BLOOD COUNT (AUTO) 9.9 K/uL (4.3-11.0)
[2025-07-14] MEDS: LOSARTAN POTASSIUM 25 MG TABLET PO SCH (08:08)
[2025-07-14 08:16] LABS: CALCIUM, SERUM 9.3 mg/dL (8.5-10.1); CREATININE 1.0 mg/dL (0.6-1.3); PHOSPHORUS 2.2 mg/dL (2.5-4.9); SODIUM SERUM 143.0 mmol/L (136-145); UREA NITROGEN, BLOOD 14.0 mg/dL (7-18)
[2025-07-14] MEDS: IPRATROPIUM NEB FS 0.5 MG/2.5 ML AMPUL.NEB NEB SCH (10:00)
[2025-07-14] MEDS: ALPRAZOLAM 0.25 MG TABLET PO PRN (10:20)
[2025-07-14] MEDS ORDERED: TIOTROPIUM BROMIDE 6 CAP/BOX CAP.W.DEV IH SCH (11:00)
[2025-07-14] MEDS: K PHOS NEUTRAL 250 MG TABLET PO ONE (12:13)
[2025-07-14] MEDS: ALBUTEROL HALF STRENGTH 1.25 MG/3 ML VIAL.NEB NEB SCH (12:54)
[2025-07-14] MEDS: ONDANSETRON HCL/PF 4 MG/2 ML VIAL IVP PRN (13:07)
[2025-07-14] MEDS ORDERED: FIXODENT DENTURE ADHESIVE CREAM TUBE MM PRN (15:00)
[2025-07-14] MEDS: IPRATROPIUM BROMIDE 14 GM INHALER (or 12.9 GM) IH SCH (16:16)
[2025-07-14] MEDS: ALBUTEROL SULFATE 8 GM HFA.AER.AD IH PRN (23:47)
[2025-07-15] VITALS (8 sets, daily range): BP systolic 112–129; BP diastolic 62–81; TEMP 97.3–98.6; O2SAT 90–100
[2025-07-15 07:15] LABS: PLATELET COUNT (AUTO) 220 K/uL (150-450); RED BLOOD CELL COUNT(AUTO) 4.39 MIL/uL (4.0-5.2); RED CELL DISTRIBUTION WIDTH 14.7 % (11.5-15.0); WHITE BLOOD COUNT (AUTO) 18.3 K/uL (4.3-11.0)
[2025-07-15 07:29] LABS: CALCIUM, SERUM 8.8 mg/dL (8.5-10.1); CREATININE 1.0 mg/dL (0.6-1.3); PHOSPHORUS 3.1 mg/dL (2.5-4.9); SODIUM SERUM 144.0 mmol/L (136-145); UREA NITROGEN, BLOOD 14.0 mg/dL (7-18)
[2025-07-15] MEDS: NICOTINE PATCH (21MG) 21 MG PATCH.TD24 TD SCH (09:19)
[2025-07-15] MEDS: ALPRAZOLAM 0.25 MG TABLET PO PRN (09:20)
[2025-07-16] VITALS (13 sets, daily range): BP systolic 133–193; BP diastolic 73–99; TEMP 97.4–98.2; O2SAT 92–99
[2025-07-16] MEDS ORDERED: IPRATROPIUM BROMIDE 14 GM INHALER (or 12.9 GM) IH PRN (09:30)
[2025-07-16] MEDS: IPRATROPIUM NEB FS 0.5 MG/2.5 ML AMPUL.NEB NEB SCH (10:59)
[2025-07-16] MEDS: ACETYLCYSTEINE 10% SOLN 400 MG/4 ML VIAL NEB SCH (14:41)
[2025-07-16] MEDS: CLONIDINE HCL 0.1 MG TABLET PO PRN (19:42)
[2025-07-17] VITALS (14 sets, daily range): BP systolic 129–153; BP diastolic 67–92; TEMP 97.5–98.3; O2SAT 93–100
[2025-07-17 06:32] LABS: CALCIUM, SERUM 8.7 mg/dL (8.5-10.1); CREATININE 1.0 mg/dL (0.6-1.3); SODIUM SERUM 146.0 mmol/L (136-145); UREA NITROGEN, BLOOD 15.0 mg/dL (7-18)
[2025-07-17 06:36] LABS: PLATELET COUNT (AUTO) 204 K/uL (150-450); RED BLOOD CELL COUNT(AUTO) 4.37 MIL/uL (4.0-5.2); RED CELL DISTRIBUTION WIDTH 14.4 % (11.5-15.0); WHITE BLOOD COUNT (AUTO) 9.0 K/uL (4.3-11.0)
[2025-07-17 11:11] LABS: LYMPHOCYTES % (MANUAL) 23 % (16-48); MONOCYTES % (MANUAL) 3 % (0-11.0); NEUTROPHILS % (MANUAL) 74 (42-76); PLATELET ESTIMATE ADEQUATE
[2025-07-18] VITALS (8 sets, daily range): BP systolic 139–161; BP diastolic 87–100; TEMP 98.2–98.4; O2SAT 94–98
[2025-07-18] MEDS ORDERED: LOSA25TA27 PO (11:35)
[2025-07-18] MEDS ORDERED: UMEC1BLS IH (11:35)
[2025-07-18] MEDS ORDERED: PRED20TA PO (11:35)
== END 2025-07-18 13:15 | disposition home or self-care (01) | DRG 192 ==
LOC: ER 12:40 → TELE1 17:51 → MEDSG1 22:14
PROVIDERS: ADMIT Internal Medicine; ATTEND Nurse Practitioner Family
DX: J44.1 Chronic obstructive pulmonary disease with (acute) exacerbation (principal); E83.39 Other disorders of phosphorus metabolism; J38.00 Paralysis of vocal cords and larynx, unspecified; I16.0 Hypertensive urgency; F41.9 Anxiety disorder, unspecified; I10 Essential (primary) hypertension; D72.829 Elevated white blood cell count, unspecified; R73.9 Hyperglycemia, unspecified; F17.210 Nicotine dependence, cigarettes, uncomplicated; Z71.6 Tobacco abuse counseling; T38.0X5A Adverse effect of glucocorticoids and synthetic analogues, initial encounter; Y92.89 Other specified places as the place of occurrence of the external cause; Z91.148 Patient's other noncompliance with medication regimen for other reason
CPT/HCPCS: 36415; 71045-TC; 71250-TC; 80048-TC; 80076-TC; 82962-TC; 83735-TC; 83880; 84100-TC; 84484-TC; 85025-TC; 85027-TC; 94760-TC; 94799-TC; G0378; J1200; J2405; J2919; J3475